=== PATIENT | male | born 1990 | race Caucasian/White ===

== ENCOUNTER 2019-03-26 14:21 | Emergency (ER) | payer BC ==
[~2019-03-26] VITALS: Ht 182.9 cm; Wt 117.9 kg
--- NOTE | 2019-03-26 14:31 | NUR ---
Placed in room 3. Placed on brake reliner, blood pressure machine and pulse oximeter. To gown for exam. Side rails up. Report given to Elda PARADA.
--- NOTE | 2019-03-26 14:47 | NUR ---
MITRA baptiste examining patient.
--- NOTE | 2019-03-26 14:50 | NUR ---
PATIENT CAME IN COMPLAINING OF LEFT SIDED CHEST PAIN THAT STARTED THIS MORNING AND PROGRESSIVLY GOT WORST. PATIENT COMPLAINING OF NON RADIATING SHARP PAIN 5/10. PATIENT COMPLAINING OF SHORTNESS OF BREATH AND NAUSEA. PATIENT ALERT AND ORIENTED X4.
--- NOTE | 2019-03-26 15:07 | NUR ---
PATIENT GETTING X RAY IN BED.
[2019-03-26 15:21] LABS: BASOPHILS # (AUTO) 0.1 K/uL (0.0-0.2); BASOPHILS % (AUTO) 0.9 % (0.0-2.0); EOSINOPHILS # (AUTO) 0.3 K/uL (0.0-0.4); EOSINOPHILS % (AUTO) 4.9 % (0.0-4.0); HEMATOCRIT 45.3 % (36-54); HEMOGLOBIN 15.9 g/dL (14.0-18.0); LYMPHOCYTES # (AUTO) 2.3 K/uL (1.0-5.5); LYMPHOCYTES % (AUTO) 35.7 % (20.5-51.5); MEAN CORPUSCULAR HEMOGLOBIN 30 pg (27-31); MEAN CORPUSCULAR HGB CONC 35 % (32-36); MEAN CORPUSCULAR VOLUME 85 fL (79.0-98.0); MONOCYTES # (AUTO) 0.4 K/uL (0.0-1.0); MONOCYTES % (AUTO) 6.1 % (1.7-9.3); NEUTROPHILS # (AUTO) 3.4 K/uL (1.8-7.7); NEUTROPHILS % (AUTO) 52.4 % (40.0-70.0); PLATELET COUNT (AUTO) 293 K/uL (130-430); RED BLOOD CELL COUNT(AUTO) 5.31 MIL/uL (4.2-6.2); RED CELL DISTRIBUTION WIDTH 12.5 % (9.0-15.0); WHITE BLOOD COUNT (AUTO) 6.4 K/uL (4.8-10.8)
--- NOTE | 2019-03-26 15:40 | NUR ---
NERY HOLDEN AT BEDSIDE TALKING TO PATIENT.
[2019-03-26 15:41] LABS: CALCIUM 9.6 mg/dL (8.4-11.0); CREATININE 1.01 mg/dL (0.55-1.30); POTASSIUM 4.5 mmol/L (3.5-5.1)
[2019-03-26 15:46] LABS: ALBUMIN 4.2 g/dL (3.4-4.8); TOTAL BILIRUBIN 0.6 mg/dL (0.0-1.0)
--- NOTE | 2019-03-26 17:33 | NUR ---
PATIENT STILL COMPLAINING OF INTERMITEN CHEST PAIN. PATIENT STATES IT IS NOT BAD EARLIER. NO SIGNS OF RESP DISTRESS.
--- NOTE | 2019-03-26 18:55 | NUR ---
Patient given written and verbal discharge instructions and verbalizes understanding. ER MD discussed with patient the results and treatment provided. Patient in stable condition. ID arm band removed. Rx of ASPIRIN given. Patient educated on pain management and to follow up with PMD. Pain Scale 3/10 TOLERABLE. Opportunity for questions provided and answered. Medication side effect fact sheet provided.
[2019-03-26 18:56] VITALS: BP_SYST 135
== END 2019-03-26 18:55 | disposition home or self-care (01) ==
LOC: EDBD 14:21 → SED 14:21
DX: R07.89 Other chest pain (principal); J45.909 Unspecified asthma, uncomplicated; R03.0 Elevated blood-pressure reading, without diagnosis of hypertension
CPT/HCPCS: 36415; 71045; 80053; 84484; 85025; 93005; 99284